=== PATIENT | female | born 1945 | race Caucasian/White ===

== ENCOUNTER 2019-09-10 15:50 | Emergency (ER) | payer MEDICARE, OTHER ==
[~2019-09-10] VITALS: Ht 162.6 cm; Wt 76.2 kg
[~2019-09-10 15:50] MED LIST: Amphetamine Sal15 MG PO; Azopt10 ML OP; BUPR150T2 PO; Budeprion Xl300 MG; ESTMED; HYDR1TAB94; LATA.005SO; LEVSOD150 PO; Norco 5-325 Ta1 EACH PO; Percocet 5-3251 EACH PO; THYR60
== END 2019-09-10 17:10 | disposition home or self-care (01) ==
LOC: ER 15:50
DX: S90.31XA Contusion of right foot, initial encounter (principal); Z88.2 Allergy status to sulfonamides; W55.19XA Other contact with horse, initial encounter
CPT/HCPCS: 73630; 99283-25

== ENCOUNTER 2021-11-05 22:28 | Emergency (ER) | payer MEDICARE, OTHER ==
[~2021-11-05] VITALS: Ht 162.6 cm; Wt 81.7 kg
[2021-11-05] MEDS ORDERED: EUTHYROX125 MCG PO (23:05)
== END 2021-11-06 00:11 | disposition home or self-care (01) ==
LOC: ER 22:28
DX: S50.11XA Contusion of right forearm, initial encounter (principal); W01.10XA Fall on same level from slipping, tripping and stumbling with subsequent striking against unspecified object, initial encounter; Z79.899 Other long term (current) drug therapy; Z88.2 Allergy status to sulfonamides; Z88.1 Allergy status to other antibiotic agents; E03.9 Hypothyroidism, unspecified
CPT/HCPCS: 73090; 99283-25

== ENCOUNTER 2022-06-19 11:15 | Emergency (ER) | payer MEDICARE, OTHER ==
[~2022-06-19] VITALS: Ht 162.6 cm; Wt 79.4 kg
[~2022-06-19 11:15] MED LIST changes: +Doxycycline Mo100 M1 PO; +EUTHYROX125 MCG PO; +EUTHYROX137 MC1 PO
== END 2022-06-19 11:58 | disposition home or self-care (01) ==
LOC: ER 11:15
DX: U07.1 COVID-19 (principal); E03.9 Hypothyroidism, unspecified; Z88.2 Allergy status to sulfonamides; Z88.1 Allergy status to other antibiotic agents
CPT/HCPCS: 99283

== ENCOUNTER 2022-08-13 17:41 | Emergency (ER) | payer MEDICARE, OTHER ==
[~2022-08-13] VITALS: Ht 162.6 cm; Wt 78.9 kg
[2022-08-13] MEDS ORDERED: MONDOXYNE NL100 MG PO (17:46)
== END 2022-08-13 17:48 | disposition home or self-care (01) ==
LOC: ER 17:41
DX: L03.115 Cellulitis of right lower limb (principal); E03.9 Hypothyroidism, unspecified; Z79.890 Hormone replacement therapy; Z88.2 Allergy status to sulfonamides; Z88.1 Allergy status to other antibiotic agents; Z88.8 Allergy status to other drugs, medicaments and biological substances
CPT/HCPCS: 99282

== ENCOUNTER → 2024-02-12 | Outpatient (CLI) | payer MEDICARE, OTHER ==
[~2024-02-12] MED LIST changes: +MONDOXYNE NL100 MG PO
== END | disposition home or self-care (01) ==
LOC: LAB 15:40 → LAB SHORT 15:40
DX: R35.0 Frequency of micturition (principal)
CPT/HCPCS: 87086

== ENCOUNTER 2025-08-24 16:12 | Emergency (ER) | payer OTHER, MEDICARE ==
[~2025-08-24] VITALS: Ht 162.6 cm; Wt 80.3 kg
[2025-08-24 16:22] VITALS: BP 150/76
[2025-08-24] MEDS ORDERED: Ketorolac Tromethamine 15mg Vial IM ONE (17:20)
[2025-08-24] MEDS ORDERED: AMOCLA875 PO (18:08)
== END 2025-08-24 18:16 | disposition home or self-care (01) ==
LOC: ER 16:12
DX: S61.451A Open bite of right hand, initial encounter (principal); E03.9 Hypothyroidism, unspecified; Z88.2 Allergy status to sulfonamides; Z88.1 Allergy status to other antibiotic agents; Z79.890 Hormone replacement therapy; Z59.89 Other problems related to housing and economic circumstances; W54.0XXA Bitten by dog, initial encounter
CPT/HCPCS: 73130; 96372; 99283-25; A9270; J1885

== ENCOUNTER 2025-10-04 12:47 | Emergency (ER) | payer MEDICARE, OTHER ==
[~2025-10-04] VITALS: Ht 162.6 cm; Wt 79.4 kg
[~2025-10-04 12:47] MED LIST changes: +AMOCLA875 PO
[2025-10-04 14:13] LABS: Influenza A, PCR NEGATIVE (NEGATIVE); Influenza B, PCR NEGATIVE (NEGATIVE); Resp Syncytial Virus, PCR NEGATIVE (NEGATIVE); SARS-Cov-2 (COVID-19) PCR, MMC NEGATIVE (NEGATIVE)
[2025-10-04 14:46] VITALS: BP 152/84
[2025-10-04] MEDS ORDERED: PSEU120ER PO (14:50)
== END 2025-10-04 14:57 | disposition home or self-care (01) ==
LOC: ER 12:47
PROVIDERS: Physician Assistant
DX: J01.90 Acute sinusitis, unspecified (principal); E03.9 Hypothyroidism, unspecified; Z79.899 Other long term (current) drug therapy; Z88.2 Allergy status to sulfonamides; Z88.1 Allergy status to other antibiotic agents
CPT/HCPCS: 71046; 87637; 99283-25; A9270